=== PATIENT | female | born 1930 | race Caucasian/White ===

== ENCOUNTER → 2017-03-17 | Outpatient (CLI) | payer MEDICARE ==
[~2017-03-17] MED LIST: ALPR0.257; AMOX-291; ASPI-496; BUTA1CAP57; CEFD300C37 PO; CHOL100011; CIPR500T3 PO; FURO20TA3; HUMALOG KWIK PEN SC; INSU100V5; INSULIN DETEMIR; LEVO150T5; LOVA40TA2 PO; MAGN400C; ONDA4TAB13; POTA20PA; TERI2.4P SC; TRAM-385; TRAZ50TA18; [UNRECOGNIZED DRUG - CODE]; [UNRECOGNIZED DRUG - OTHER]
== END | disposition home or self-care (01) ==
LOC: CFH 09:08
PROVIDERS: ATTEND Family Medicine
DX: Z13.820 Encounter for screening for osteoporosis (principal); M85.88 Other specified disorders of bone density and structure, other site; M81.0 Age-related osteoporosis without current pathological fracture; E03.9 Hypothyroidism, unspecified; E55.9 Vitamin D deficiency, unspecified
CPT/HCPCS: 77080